=== PATIENT | male | born 1995 | race Caucasian/White ===

== ENCOUNTER 2021-12-06 19:58 | Emergency (ER) | payer MEDICAID ==
[~2021-12-06] VITALS: Ht 185.4 cm; Wt 80.0 kg
[2021-12-06 21:00] VITALS: BP 119/77
[2021-12-06] MEDS ORDERED: IBUPROFEN 600 MG TABLET PO ONE (21:15)
== END 2021-12-06 22:00 | disposition home or self-care (01) ==
LOC: EMS 20:06
DX: S93.401A Sprain of unspecified ligament of right ankle, initial encounter (principal); Z88.0 Allergy status to penicillin; Z88.1 Allergy status to other antibiotic agents; X50.1XXA Overexertion from prolonged static or awkward postures, initial encounter; Y93.89 Activity, other specified; Y92.89 Other specified places as the place of occurrence of the external cause; Y99.8 Other external cause status
CPT/HCPCS: 99283

== ENCOUNTER 2021-12-14 21:04 | Emergency (ER) | payer MEDICAID ==
[~2021-12-14] VITALS: Ht 185.4 cm; Wt 79.5 kg
[2021-12-14] MEDS ORDERED: KETOROLAC TROMETHAMINE 30 MG/ML VIAL IM ONE (22:00)
[2021-12-15] MEDS ORDERED: IBUP-2070 PO (00:30)
[2021-12-15 00:37] VITALS: BP 112/63
== END 2021-12-15 00:41 | disposition home or self-care (01) ==
LOC: EMS 21:07
DX: M25.571 Pain in right ankle and joints of right foot (principal); Z88.0 Allergy status to penicillin; Z88.1 Allergy status to other antibiotic agents
CPT/HCPCS: 99283; 73610; 96372; J1885